=== PATIENT | male | born 1975 | race Caucasian/White ===

== ENCOUNTER 2017-01-06 19:02 | Emergency (ER) | payer OTHER ==
[2017-01-06 21:15] VITALS: BP 147/100
== END 2017-01-06 21:15 | disposition home or self-care (01) ==
LOC: ED 19:02
DX: T18.9XXA Foreign body of alimentary tract, part unspecified, initial encounter (principal); X58.XXXA Exposure to other specified factors, initial encounter; Y93.89 Activity, other specified; Y99.8 Other external cause status; Y92.89 Other specified places as the place of occurrence of the external cause

== ENCOUNTER 2017-05-20 13:25 | Emergency (ER) | payer SELFPAY ==
[~2017-05-20] VITALS: Ht 170.2 cm; Wt 103.4 kg
[2017-05-20 13:30] VITALS: Ht 170.2 cm; Wt 103.4 kg
[2017-05-20 17:26] VITALS: BP 147/92
== END 2017-05-20 17:26 | disposition home or self-care (01) ==
LOC: ED 13:25
DX: B34.9 Viral infection, unspecified (principal)
CPT/HCPCS: 82962; 87804; J1885